=== PATIENT | female | born 1955 | race Caucasian/White ===

== ENCOUNTER 2016-12-08 21:39 | Emergency (ER) | payer OTHER ==
[~2016-12-08] VITALS: Ht 160 cm; Wt 61.0 kg
[~2016-12-08 21:39] MED LIST: ALBUTERAL; ALEVE220 MG PO; CALCIUM500 MG PO; COMBIVENT INH14.7 GM; COMBIVENT1 PUFF INH; LAMICTAL200 MG; LAMOTRIGINE100 MG PO; LEVOXYL100 MCG PO; LEVOXYL75 MCG; MULTIVITAMIN1 TAB PO; PROGESTERONE200 MG PO; PULMICORT0.5 MG/2 M IH; PULMICORT180 MCG/AE IH; SINGULAIR10 MG PO; SPIRIVA18 MCG IH; VENTOLIN HFA18 GM INH; VITAMIN D31000 UNI2 PO; VIVELLE-DO1 PATCH.B TD
[2016-12-08] MEDS ORDERED: PREDNISONE10 M1 PO (21:59)
[2016-12-08] MEDS ORDERED: HYZAAR 50-12.51 EACH PO (22:00)
[2016-12-08] MEDS ORDERED: SERTRALINE HCL50 M4 PO (22:01)
[2016-12-08] MEDS ORDERED: BUSPIRONE HCL10 M2 PO (22:01)
[2016-12-08] MEDS ORDERED: PROTONIX40 M2 PO (22:01)
[2016-12-08] MEDS ORDERED: CLARITIN10 M6 PO (22:02)
[2016-12-08] MEDS ORDERED: RANITIDINE HCL150 M3 PO (22:02)
[2016-12-08] MEDS ORDERED: HYDROCODON-ACE1 EA16 PO (22:02)
[2016-12-08 22:22] LABS: BASO % 0.1 % (0-2); HCT-HEMATOCRIT 43.3 % (34.0-49.0); HGB-HEMOGLOBIN 15.4 gm/dl (12.0-15.5); IMMATURE GRANULOCYTES PERCENT 0.8 % (0-0.3); LYMPH % 6.5 % (20-45); LYMPH ABSOLUTE COUNT 0.9 tho/cmm (0.8-4.5); MCH (MEAN CORPUSCULAR HGB) 35.1 pg (28.0-32.0); MCHC MEAN CORPUSCULAR HGB CONC 35.6 % (32.0-36.0); MCV (MEAN CELL VOLUME) 98.6 fl (82.0-96.0); MEAN PLATELET VOLUME 10.1 cmc (9.4-12.4); MONOCYTE ABSOLUTE COUNT 0.5 tho/cmm (0.0-1.2); NEUTROPHIL ABSOLUTE COUNT 11.7 tho/cmm (1.6-8.0); NEUTROPHIL-AUTOMATED 11.7 tho/cmm (1.6-8.0); NEUTROPHILS % 88.6 % (40-80); PLATELET COUNT 161 tho/cmm (150-450); RED BLOOD COUNT 4.39 mil/cmm (4.00-5.20); RED CELL DISTRIBUTION WIDTH 13.7 % (12.4-16.4); WHITE BLOOD COUNT 13.2 tho/cmm (4.0-10.0)
[2016-12-08 22:38] LABS: ANION GAP 12 mmol/L (0-20); BLOOD UREA NITROGEN 20 mg/dl (6-24); CARBON DIOXIDE-VENOUS 27 mmol/L (22-32); CHLORIDE 103 mmol/l (96-110); CREATININE 0.98 mg/dl (0.50-1.10); GLUCOSE 138 mg/dL (70-110); SODIUM 139 mmol/L (135-145); eGFR VALUE FOR BLACK 73 mL/Min
[2016-12-08 22:42] LABS: POTASSIUM 3.4 mmol/L (3.7-5.1)
[2016-12-08] MEDS ORDERED: PREDNISONE20 M1 PO (23:16)
[2016-12-08] MEDS ORDERED: VIBRAMYCIN100 M1 PO (23:16)
== END 2016-12-08 23:49 ==
LOC: EDMED 21:39
PROVIDERS: Emergency Medicine
DX: J44.1 Chronic obstructive pulmonary disease with (acute) exacerbation (principal); J18.9 Pneumonia, unspecified organism; I47.1 Supraventricular tachycardia; I10 Essential (primary) hypertension; J45.909 Unspecified asthma, uncomplicated; F17.200 Nicotine dependence, unspecified, uncomplicated; Z79.51 Long term (current) use of inhaled steroids; Z79.899 Other long term (current) drug therapy; Z90.710 Acquired absence of both cervix and uterus
CPT/HCPCS: J2930; J7030